=== PATIENT | male | born 1960 | race Caucasian/White ===

== ENCOUNTER 2017-01-12 22:06 | Inpatient (IN) | payer OTHER ==
[~2017-01-12] VITALS: Ht 170.2 cm; Wt 115.5 kg
[2017-01-12] MEDS ORDERED: SODIUM CHLORIDE FLUSH 10ML SYR IVF ONE (22:30)
[2017-01-12] MEDS ORDERED: ATOR40TA PO (22:33)
[2017-01-12] MEDS ORDERED: ASPI-496 PO (22:33)
[2017-01-12] MEDS ORDERED: MULT-257 PO (22:33)
[2017-01-12] MEDS ORDERED: HYDR-3307 PO (22:33)
[2017-01-12] MEDS ORDERED: CARV12.52 PO (22:33)
[2017-01-12] MEDS ORDERED: VENL150C6 PO (22:33)
[2017-01-12] MEDS ORDERED: FINA5TAB4 PO (22:33)
[2017-01-12] MEDS ORDERED: TRAZ100T15 PO (22:33)
[2017-01-12] MEDS ORDERED: MORP60TA34 PO (22:33)
[2017-01-12] MEDS ORDERED: MAGN400T26 PO (22:33)
[2017-01-12] MEDS ORDERED: TAMS0.4C2 PO (22:33)
[2017-01-12] MEDS ORDERED: ESOM40CA PO (22:33)
[2017-01-12] MEDS ORDERED: MELO-184 PO (22:33)
[2017-01-12] MEDS ORDERED: TELM40TA PO (22:33)
[2017-01-12 22:41] LABS: HEMATOCRIT 43.2 % (39.2-51.8); HEMOGLOBIN 14.3 g/dL (13.7-18.0); WHITE BLOOD COUNT 6.9 x10^3/uL (3.4-10)
[2017-01-12 22:52] LABS: BLOOD UREA NITROGEN 14 mg/dL (7-18)
[2017-01-12 22:58] LABS: IS PT STATUS REG ER OR PRE ER? YES
[2017-01-12] MEDS ORDERED: TRAZODONE 100MG TABLET PO SCH (23:00)
[2017-01-12] MEDS ORDERED: ENALAPRILAT 1.25 MG/ML, 2ML IVPush PRN (23:00)
[2017-01-12] MEDS ORDERED: ACETAMINOPHEN 325 MG TABLET PO PRN (23:00)
[2017-01-12] MEDS ORDERED: morphine SULFATE 60 MG TABLET.ER PO SCH (23:00)
[2017-01-12] MEDS ORDERED: ENOXAPARIN 40 MG/0.4 ML SQ SCH (23:00)
[2017-01-12] MEDS ORDERED: ONDANSETRON 2MG/ML, 2ML IVPush PRN (23:00)
[2017-01-12] MEDS ORDERED: HYDROcodone/APAP 10/325 MG TABLET PO PRN (23:00)
[2017-01-12] MEDS ORDERED: VENLAFAXINE 75 MG CAP ER PO SCH (23:00)
[2017-01-13 01:30] VITALS: BP 138/76
[2017-01-13 03:38] VITALS: BP 136/72
[2017-01-13 05:28] LABS: HEMATOCRIT 40.4 % (39.2-51.8); HEMOGLOBIN 13.4 g/dL (13.7-18.0); WHITE BLOOD COUNT 6.8 x10^3/uL (3.4-10)
[2017-01-13 05:48] LABS: BLOOD UREA NITROGEN 14 mg/dL (7-18)
[2017-01-13] MEDS ORDERED: ASPIRIN 325 MG TABLET EC PO SCH (06:00)
[2017-01-13] MEDS ORDERED: REGADENOSON 0.4 MG/5 ML SYRINGE ONE ×2 (08:02→10:50)
[2017-01-13 08:20] VITALS: BP 119/75
[2017-01-13] MEDS ORDERED: CARVEDILOL 12.5 MG TABLET PO SCH (09:00)
[2017-01-13] MEDS ORDERED: PANTOPROZOLE 40MG TABLET PO SCH (09:00)
[2017-01-13] MEDS ORDERED: TAMSULOSIN 0.4 MG CAP.ER.24H PO SCH (09:00)
[2017-01-13] MEDS ORDERED: ASPIRIN 81 MG TABLET EC PO SCH (09:00)
[2017-01-13] MEDS ORDERED: FINASTERIDE 5 MG TABLET PO SCH (09:00)
[2017-01-13] MEDS ORDERED: VALSARTAN 80 MG TABLET PO SCH (09:00)
[2017-01-13] MEDS ORDERED: MAGNESIUM OXIDE 400 MG TABLET PO SCH (09:00)
[2017-01-13 09:04] LABS: IS PT STATUS REG ER OR PRE ER? NO
[2017-01-13 12:45] VITALS: BP 142/86
[2017-01-13] MEDS ORDERED: morphine SULFATE 60 MG TABLET.ER PO SCH (21:00)
[2017-01-13] MEDS ORDERED: ATORVASTATIN 40 MG TABLET PO SCH (21:00)
== END 2017-01-13 16:55 | disposition home or self-care (01) | DRG 392 ==
LOC: ED 22:29 → EDIP 23:00 → 4WST 23:08 → DCLOUNGE 01-13 16:43
PROVIDERS: ADMIT Internal Medicine; ATTEND Internal Medicine
DX: K21.9 Gastro-esophageal reflux disease without esophagitis (principal); I10 Essential (primary) hypertension; E78.5 Hyperlipidemia, unspecified; Z88.8 Allergy status to other drugs, medicaments and biological substances; E78.00 Pure hypercholesterolemia, unspecified; G89.29 Other chronic pain; I49.3 Ventricular premature depolarization; N40.0 Benign prostatic hyperplasia without lower urinary tract symptoms; Z87.891 Personal history of nicotine dependence; I25.10 Atherosclerotic heart disease of native coronary artery without angina pectoris
CPT/HCPCS: 36415; 78452; 80048; 80061; 82040; 83735; 84484; 85025; 85610; 93005; 93017; 99285; J1650; J2785; A9502; C9898